=== PATIENT | female | born 1950 | race Caucasian/White ===

== ENCOUNTER 2016-12-12 09:46 | Emergency (ER) | payer OTHER ==
[~2016-12-12] VITALS: Ht 157.5 cm; Wt 79.4 kg
[~2016-12-12 09:46] MED LIST: ASPI81TA21 PO; ATEN-102 PO; CHOLMIS5 PO; GUAI100S6 PO; MONT10TA2 PO; RANI150T PO; ZITH250T PO
[2016-12-12 09:48] VITALS: BP 155/114; PULSE 76; RESP 16; TEMP 98.2; O2SAT 98
[2016-12-12] MEDS ORDERED: RANI150T PO (10:02)
[2016-12-12] MEDS ORDERED: MONT10TA2 PO (10:02)
[2016-12-12] MEDS ORDERED: ASPI1TAB69 PO (10:02)
[2016-12-12] MEDS ORDERED: ATEN50TA PO (10:02)
[2016-12-12 10:05] LABS: BLOOD, URINE NEG (NEG); GLUCOSE,URINE NEG (NEG); KETONE, URINE NEG (NEG); PH, URINE 5.5 (5.0-8.5)
[2016-12-12 10:08] VITALS: RESP 18; O2SAT 95
[2016-12-12 10:09] VITALS: BP 146/78; PULSE 71; RESP 18; O2SAT 95
[2016-12-12 10:12] LABS: NITRITE,URINE POS (NEG)
--- NOTE | 2016-12-12 10:16 | PD ---
HPI Chief Complaint: Complaint Time Seen by Provider: 09:58 Travel History International Travel<30 days: No Contact w/Intl Traveler<30days: No Traveled to known affect area: No History of Present Illness HPI 66 y/o female presents with feeling like she has a urinary tract infection where she will feel like she has to urinate but then only get out a small amount. She states that she hasn't had a urinary tract infection for multiple years. She states that when she was at work today she felt black swirly-like feeling go across her eyes that only lasted a short while. She denies that symptom now that her blood pressure is better in the room. She states she's not sure if she took her blood pressure medicine last night as she has a dog that is sick at home and that has her stressed. She denies any chest pain, shortness breath, weakness or other concurrent complaints. Severity is none currently. PFSH Past Medical History Hx Anticoagulant Therapy: No Asthma: Yes Cancer: No Cardiovascular Problems: Yes (VA TIMES 2 , HTN, CHOL) High Cholesterol: Yes Chest Pain: Yes (hx of) Diabetes: No Gastrointestinal Disorders: Yes (HAD BLEEDING FOR 2 DAYS-COLONOSCOPY DONE- EVERYTHING OK.) GERD: Yes Glaucoma: No Hepatitis: No Hiatal Hernia: No Hypertension: Yes (on blood pressure medication) Respiratory: Yes (asthma) Integumentary: No Myocardial Infarction: Yes (01/2015) Thyroid Disease: No Ulcer: Yes Past Surgical History Section: Yes (x1) Hysterectomy: Yes Social History Alcohol Use: Yes (occas. wine) Tobacco Use: No Substance Use: No Allergies-Medications (Allergen,Severity, Reaction): Coded Allergies: No Known Allergies (Verified , 12/12/16) Reported Meds & Prescriptions Reported Meds & Active Scripts Active Macrobid (Nitrofurantoin Monoh/Nitrofur Macro) 100 Mg Cap 100 Mg PO BID 7 Days Reported Ranitidine (Ranitidine HCl) 150 Mg Tab 150 Mg PO DAILY Singulair (Montelukast Sodium) 10 Mg Tab 10 Mg PO HS Atenolol 50 Mg Tab 50 Mg PO DAILY Aspirin 81 Mg Tabdr 81 Mg PO DAILY Review of Systems Except as stated in HPI: all other systems reviewed are Neg Physical Exam Narrative GENERAL: Well-nourished, well-developed patient. Well-appearing SKIN: Warm and dry. HEAD: Normocephalic and atraumatic. EYES: No injection or drainage. Pupils are equal bilaterally, extraocular movements intact ENT: No nasal drainage noted. NECK: Supple, trachea midline. CARDIOVASCULAR: Regular rate and rhythm RESPIRATORY: Breath sounds equal bilaterally. No accessory muscle use. GASTROINTESTINAL: Abdomen soft, non-tender, nondistended. EXTREMITIES: No edema. NEUROLOGICAL: Awake and alert. Motor and sensory grossly within normal limits. Normal speech. No facial droop, 5 out of 5 in all 4 extremities, equal grasp bilaterally Data Data Last Documented VS Vital Signs Date Time Temp Pulse Resp B/P Pulse Ox O2 Delivery O2 Flow Rate FiO2 12/12/16 10:53 70 16 155/96 97 Room Air 12/12/16 09:48 98.2 Orders Urinalysis - C+S If Indicated (12/12/16 09:49) Magnesium (Mg) (12/12/16 10:03) Phosphorus (Po4) (12/12/16 10:03) Complete Blood Count With Diff (12/12/16 10:03) Basic Metabolic Panel (Bmp) (12/12/16 10:03) Iv Access Insert/Monitor (12/12/16 10:03) Ecg Monitoring (12/12/16 10:03) Oximetry (12/12/16 10:03) Urine Culture (12/12/16 09:50) Labs Laboratory Tests Test 12/12/16 12/12/16 09:50 10:10 Urine Collection Type VOIDED Urine Color DARK-YELLOW Urine Turbidity CLEAR Urine pH 5.5 Urine Specific [place] 1.015 Urine Protein NEG mg/dL Urine Glucose (UA) NEG mg/dL Urine Ketones NEG mg/dL Urine Occult Blood NEG Urine Nitrite POS Urine Bilirubin NEG Urine Leukocyte Esterase NEG Urine WBC 0-2 /hpf Urine Squamous Epithelial 0-5 /hpf Cells Urine Bacteria RARE /hpf Urine Mucus FEW /lpf Microscopic Urinalysis Comment CULTURE INDICATED White Blood Count 5.2 TH/MM3 Red Blood Count 4.29 MIL/MM3 Hemoglobin 13.1 GM/DL Hematocrit 38.2 % Mean Corpuscular Volume 89.0 FL Mean Corpuscular Hemoglobin 30.4 PG Mean Corpuscular Hemoglobin 34.2 % Concent Red Cell Distribution Width 12.8 % Platelet Count 382 TH/MM3 Mean Platelet Volume 7.7 FL Neutrophils (%) (Auto) 61.1 % Lymphocytes (%) (Auto) 27.0 % Monocytes (%) (Auto) 8.1 % Eosinophils (%) (Auto) 2.4 % Basophils (%) (Auto) 1.4 % Neutrophils # (Auto) 3.2 TH/MM3 Lymphocytes # (Auto) 1.4 TH/MM3 Monocytes # (Auto) 0.4 TH/MM3 Eosinophils # (Auto) 0.1 TH/MM3 Basophils # (Auto) 0.1 TH/MM3 CBC Comment DIFF FINAL Differential Comment Sodium Level 142 MEQ/L Potassium Level 3.7 MEQ/L Chloride Level 105 MEQ/L Carbon Dioxide Level 29.1 MEQ/L Anion Gap 8 MEQ/L Blood Urea Nitrogen 14 MG/DL Creatinine 0.74 MG/DL Estimat Glomerular Filtration 79 ML/MIN Rate Random Glucose 100 MG/DL Calcium Level 8.8 MG/DL Phosphorus Level 2.7 MG/DL Magnesium Level 2.3 MG/DL MDM Medical Decision Making Medical Screen Exam Complete: Yes Emergency Medical Condition: Yes Medical Record Reviewed: Yes (past history confirmed) Interpretation(s) CBC & BMP Diagram 12/12/16 10:10 UA with UTI Differential Diagnosis UTI, stone, anemia, renal failure Narrative Course Will check blood work, urinalysis and reevaluate. Patient agrees to workup as ordered. Blood pressure has normalized on its own. She has no active symptoms other than UTI like symptoms. She describes this haziness over her eyes that lasted a short time without associated loss of consciousness or other symptoms. Patient with benign exam Blood work without acute process, UA with UTI. Patient agrees to further workup through her primary care physician, given return instructions Diagnosis Primary Impression: UTI (urinary tract infection) Qualified Code: N39.0 - Urinary tract infection without hematuria, site unspecified Additional Impression: Transient visual disturbance, bilateral Patient Instructions: General Instructions Additional Instructions: return as needed, follow with primary tommorrow, take antibiotic as directed, keep blood pressure log Med/Other Pt SpecificInfo: Prescription(s) given Scripts Nitrofurantoin Monohydrate Macrocrystals (Macrobid)100 Mg [id number] Mg PO BID 7 Days Prov:Amie Gibbs MD 12/12/16 Disposition: 01 DISCHARGE HOME Condition: Stable Amie Gibbs MD December 12, 2016 10:16
[2016-12-12 10:29] LABS: METHOD OF COLLECTION VOIDED; URINE COLOR DARK-YELLOW (YELLW/STRAW)
[2016-12-12 10:30] LABS: MUCUS URINE FEW /lpf (OCC)
[2016-12-12 10:30] LABS: AUTOMATED NEUTROPHIL # 3.2 TH/MM3 (1.8-7.7); BASOPHIL # 0.1 TH/MM3 (0-0.2); BASOPHIL % 1.4 % (0.0-2.0); EOSINOPHIL # 0.1 TH/MM3 (0-0.4); EOSINOPHIL % 2.4 % (0.0-4.0); HEMATOCRIT 38.2 % (35.0-46.0); HEMO FLAGS DIFF FINAL; LYMPHOCYTE # 1.4 TH/MM3 (1.0-4.8); MEAN CORPUSCULAR HEMOGLOBIN 30.4 PG (27.0-34.0); MEAN CORPUSCULAR HGB CONC 34.2 % (32.0-36.0); MONO % 8.1 % (0.0-8.0); NEUT % 61.1 % (16.0-70.0); PLATELET COUNT 382 TH/MM3 (150-450); RED BLOOD COUNT 4.29 MIL/MM3 (4.00-5.30); RED CELL DISTRIBUTION WIDTH 12.8 % (11.6-17.2); WHITE BLOOD COUNT 5.2 TH/MM3 (4.0-11.0)
[2016-12-12 10:31] LABS: BACTERIA, URINE RARE /hpf; COMMENT (UR) CULTURE INDICATED; CULTURE IF INDICATED CULTURE INDICATED; SQUAMOUS EPITHELIAL CELL URINE 0-5 /hpf (0-5); WBC, URINE 0-2 /hpf (0-5)
[2016-12-12 10:38] LABS: POTASSIUM 3.7 MEQ/L (3.5-5.1)
[2016-12-12 10:41] LABS: BICARBONATE 29.1 MEQ/L (21.0-32.0); MAGNESIUM 2.3 MG/DL (1.5-2.5)
[2016-12-12 10:53] VITALS: BP 155/96; PULSE 70; RESP 16; O2SAT 97
[2016-12-12] MEDS ORDERED: MACR100C2 PO (10:59)
== END 2016-12-12 11:15 | disposition home or self-care (01) ==
LOC: PHED 09:46
DX: N39.0 Urinary tract infection, site not specified (principal); B96.89 Other specified bacterial agents as the cause of diseases classified elsewhere; H53.8 Other visual disturbances; I10 Essential (primary) hypertension; I25.2 Old myocardial infarction; J45.909 Unspecified asthma, uncomplicated; Z79.82 Long term (current) use of aspirin; Z79.899 Other long term (current) drug therapy
CPT/HCPCS: 80048; 81001; 83735; 84100; 85025; 87086; 99284

== ENCOUNTER 2017-09-06 08:31 | Day surgery (SDC) | payer OTHER ==
[~2017-09-06] VITALS: Ht 157.5 cm; Wt 79.0 kg
[~2017-09-06 08:31] MED LIST changes: +ASPI1TAB69 PO; -ASPI81TA21 PO; -ATEN-102 PO; +ATEN50TA PO; -CHOLMIS5 PO; -GUAI100S6 PO; +MACR100C2 PO; -ZITH250T PO
[2017-09-06] MEDS ORDERED: IOHEXOL 350 MG/ML 50 ML BTL (for Cath Lab) OTHER ONE (08:32)
[2017-09-06 09:07] VITALS: BP 161/81; PULSE 62; RESP 16; TEMP 98; O2SAT 96
[2017-09-06] MEDS ORDERED: FLUT1INH7 INH (09:12)
[2017-09-06] MEDS ORDERED: MELO7.5T27 PO (09:12)
[2017-09-06] MEDS ORDERED: OMEP40CA2 PO (09:12)
[2017-09-06] MEDS ORDERED: ASPI81TA23 PO (09:12)
[2017-09-06] MEDS ORDERED: AMLO5TAB2 PO (09:12)
[2017-09-06] MEDS ORDERED: ATOR10TA15 PO (09:12)
[2017-09-06] MEDS ORDERED: NITR0.4S SL (09:12)
[2017-09-06] MEDS ORDERED: ISOS30TA3 PO (09:12)
[2017-09-06] MEDS ORDERED: ALBUAER3 INH (09:12)
[2017-09-06] MEDS ORDERED: NS 1000P @30 MLS/HR (KVO) IV SCH (09:15)
[2017-09-06 09:32] LABS: AUTOMATED NEUTROPHIL # 2.3 TH/MM3 (1.8-7.7); BASOPHIL # 0.1 TH/MM3 (0-0.2); BASOPHIL % 1.2 % (0.0-2.0); EOSINOPHIL # 0.1 TH/MM3 (0-0.4); EOSINOPHIL % 2.6 % (0.0-4.0); HEMATOCRIT 39.1 % (35.0-46.0); HEMOGLOBIN 13.1 GM/DL (11.6-15.3); LYMPH % 33.8 % (9.0-44.0); LYMPHOCYTE # 1.6 TH/MM3 (1.0-4.8); MEAN CELL VOLUME 91.2 FL (80.0-100.0); MEAN CORPUSCULAR HEMOGLOBIN 30.7 PG (27.0-34.0); MEAN CORPUSCULAR HGB CONC 33.6 % (32.0-36.0); MONO % 11.9 % (0.0-8.0); MONOCYTE # 0.5 TH/MM3 (0-0.9); NEUT % 50.5 % (16.0-70.0); PLATELET COUNT 356 TH/MM3 (150-450); RED BLOOD COUNT 4.29 MIL/MM3 (4.00-5.30); RED CELL DISTRIBUTION WIDTH 13.4 % (11.6-17.2); WHITE BLOOD COUNT 4.6 TH/MM3 (4.0-11.0)
[2017-09-06] MEDS ORDERED: HEPARIN-NS/PF INJ 1,000 ML ONE (09:38)
[2017-09-06 09:40] LABS: INTERNATIONAL NORMALIZED RATIO 1.1 RATIO; PROTHROMBIN TIME - PATIENT 10.9 SEC (9.8-11.6)
[2017-09-06] MEDS ORDERED: MIDAZOLAM HCL 2 MG/2 ML VIAL ONE (09:42)
[2017-09-06] MEDS ORDERED: VERAPAMIL HCL 5 MG/2 ML VIAL ONE (09:43)
[2017-09-06] MEDS ORDERED: HEPARIN SODIUM - IV 10,000 UNITS/10 ML VIAL ONE (09:43)
[2017-09-06 09:52] LABS: BICARBONATE 29.6 MEQ/L (21.0-32.0); CALCIUM 8.9 MG/DL (8.5-10.1); CREATININE 0.59 MG/DL (0.50-1.00)
[2017-09-06] MEDS ORDERED: MISC INFORMATION XX ONE (10:45)
--- NOTE | 2017-09-06 10:47 | MA ---
cc: KADE PARSON DO DATE 09/06/2017 PROCEDURE Left heart catheterization, coronary angiogram, moderate sedation 30 minutes. PREPROCEDURE DIAGNOSIS Questionable ischemia on stress test, chest pain. POSTPROCEDURE DIAGNOSIS Mild coronary artery disease. MEDICATIONS 1. Versus 0.5 mg 2. Fentanyl 25 mcg 3. Nitro 200 mcg 4. Verapamil 2.5 mg 5. Heparin 3200 units CONTRAST 40 cc FLUOROSCOPY 8.4 minutes ANESTHESIA Moderate sedation 30 minutes ESTIMATED BLOOD LOSS 10 cc PROCEDURAL SUMMARY Evie Rao is a pleasant 67-year-old female who sees my partner Dr. Wang in the office and was noted to have possible ischemia on the distal portion of her anterior wall. She continued to have chest pain and so she was recommended cardiac catheterization. Risks, benefits and alternatives were explained to her and she consented as such. She was brought to lab and prepped in the usual sterile fashion. Right radial artery was accessed using a modified Seldinger technique and placement of a 5/6 [place] slender sheath. This was easily aspirated and flushed. A JR-4 was advanced over a J-wire to the ascending aorta and across the aortic valve for measurement of left ventricular pressure. This was pulled back across the aortic valve showing no significant gradient of aortic stenosis. JR-4 was used for selective angiography of the right coronary artery system. This was exchanged out for a JL-3.5 and eventually a JL-4 which was used for selective angiography of the left coronary artery system. JL-4 was removed over a J-wire. Radial band was placed over the arteriotomy site for hemostasis. The patient left the director of cath lab cardiovascularly stable. FINDINGS Left main normal sized vessel with adequate reflux. It bifurcates into an LAD and circumflex. LAD, a normal-size vessel mild luminal irregularities throughout the proximal portion with diffuse 10-20% disease distally. Left circumflex is a normal sized vessel with mild luminal irregularities in the midportion. It gives off three obtuse marginales which are overall small, but no significant disease. RCA normal-sized vessel with a 20% lesion in the midportion. Distally, the PDA has no significant disease. LVEDP seven. IMPRESSIONS 1. Atypical chest pain. 2. Mild coronary artery disease by cardiac catheterization. RECOMMENDATIONS 1. Ms. Rao appears to have no significant change in her cardiac catheterization compared to 2014. 2. She will be recommended to continue medical therapy. 3. She will follow up with Dr. Wang as previously scheduled. Thank you for allowing me to see Evie Rao. If there are any questions, please do not hesitate to call. Kade Parson DO VGP/DJL /10:32 AM /10:38 AM
--- NOTE | 2017-09-06 11:28 | EKG ---
Date Performed: 09/06/2017 Time Performed: 09:16:02 PTAGE: 67 years EKG: Sinus bradycardia with borderline 1st degree A-V block. Prolonged QT interval Abnormal ECG PREVIOUS TRACING : 05/22/2015 11.58 Since the prior tracing, there has been no significant hurtado DOCTOR: Emil Swann Interpretating Date/Time 09/06/2017 11:28:07
== END 2017-09-06 14:34 | disposition home or self-care (01) ==
LOC: HDOC 08:31 → HDIC 08:31 → HDOC 14:34
PROVIDERS: ATTEND Nuclear Medicine Nuclear Cardiology
DX: I25.10 Atherosclerotic heart disease of native coronary artery without angina pectoris (principal); I10 Essential (primary) hypertension; R94.39 Abnormal result of other cardiovascular function study; E78.5 Hyperlipidemia, unspecified; K21.9 Gastro-esophageal reflux disease without esophagitis; M79.7 Fibromyalgia; J45.909 Unspecified asthma, uncomplicated; E66.9 Obesity, unspecified; Z68.31 Body mass index [BMI] 31.0-31.9, adult
CPT/HCPCS: 80048; 85025; 85610; 85730; 93005; 93458; 99152; 99153; C1769; C1893; J1644; J2250; J3010; Q9967